=== PATIENT | male | born 1940 | race Two or more races ===

== ENCOUNTER → 2025-07-02 | Outpatient (CLI) | payer MEDICAID, SELFPAY ==
--- NOTE | 2025-07-02 13:00 | XR_ITS ---
Examination: Retroperitoneal ultrasound, complete Technique: Multiple high resolution grayscale images of the retroperitoneum obtained, including kidneys and bladder. Exam date and time: July 02, 2025, 1331 hours INDICATIONS: Elevated renal function studies on laboratory examination 2 months ago, diagnosis chronic kidney disease stage IV FINDINGS: Right kidney 7.7 cm renal cortex 1.7 cm Small renal cysts Left ovary 9.2 cm renal cortex 1.5 cm 34 mm upper pole cyst and multiple smaller cysts Moderate renal scar formation No bladder mass or bladder calculi Bladder prevoid volume 113 Prostate 4.4 x 3.8 x 4.3 cm IMPRESSION: Small kidneys with bilateral renal cortical thinning Moderate bilateral renal parenchymal scar formation No hydronephrosis
== END | disposition home or self-care (01) ==
LOC: CDIM 07-04 08:01
PROVIDERS: PCP Internal Medicine Nephrology; Referring Provider Internal Medicine Nephrology; Visit Provider Internal Medicine Nephrology
DX: N28.89 Other specified disorders of kidney and ureter (principal); N18.4 Chronic kidney disease, stage 4 (severe)
CPT/HCPCS: 76770